=== PATIENT | male | born 2000 | race African-American/Black ===

== ENCOUNTER 2020-09-03 11:10 | Emergency (ER) | payer OTHER ==
[2020-09-03] MEDS ORDERED: predniSONE 20 MG TAB ONE ×2 (12:01)
== END 2020-09-03 12:05 | disposition home or self-care (01) ==
LOC: ERS 11:10
DX: T78.1XXA Other adverse food reactions, not elsewhere classified, initial encounter (principal)
CPT/HCPCS: 99283; J7512